=== PATIENT | male | born 1990 | race Caucasian/White ===

== ENCOUNTER 2018-12-24 15:07 | Outpatient (REF) | payer SELFPAY ==
[2018-12-26 11:26] LABS: Syphilis Serology (RPR) Negative (Negative)
== END 2018-12-24 15:27 ==
LOC: NCHCN 15:07
PROVIDERS: PCP Nurse Practitioner Family; Visit Provider Specialist/Technologist Athletic Trainer
DX: N48.9 Disorder of penis, unspecified (principal)
CPT/HCPCS: 86592

== ENCOUNTER 2019-01-09 16:26 | Emergency (ER) | payer SELFPAY ==
[2019-01-09 16:41] VITALS: BP 140/80; PULSE 80; RESP 16; TEMP 36.8; O2SAT 100
[2019-01-09] MEDS: Normal Saline 1,000 ML 1000 ML IV (17:05)
[2019-01-09] MEDS: Normal Saline Flush 10 ML SYR IVP (17:14)
[2019-01-09 17:17] LABS: Abs Immature Grans 0.01 k/cumm (0.0-0.09); Absolute Basophil Count 0.04 k/cumm (0.0-0.2); Absolute Eosinophil Count 0.11 k/cumm (0.0-0.7); Absolute Lymphocyte Count 2.17 k/cumm (1.2-3.4); Absolute Monocyte Count 0.54 k/cumm (0.11-0.7); Absolute Neutrophil Count 4.13 k/cumm (1.2-6.7); Basophils % 0.6; Eosinophils % 1.6; HCT 47.6 % (40.0-50.0); HGB 16.4 g/dL (13.5-17.5); Immature Grans % 0.1; Mean Corp. HGB Concentration 34.5 g/dL (32.0-36.0); Mean Corpuscular Hemoglobin 30.6 pg (27.0-33.0); Mean Corpuscular Volume 88.8 fL (80-95); Mean Platelet Volume 9.6 fL (8.0-11.0); Monocytes % 7.7; Platelet Count 285 x1000/uL (130-400); RBC 5.36 m/cumm (4.50-6.00); RBC Distribution Width 11.7 % (11.8-14.1)
[2019-01-09 17:21] VITALS: RESP 16
[2019-01-09 17:30] LABS: ALT 20 U/L (16-63); AST 18 U/L (15-37); Albumin 4.6 g/dL (3.4-5.0); Alkaline Phosphatase 47 U/L (46-116); Anion Gap 7.6 mmol/L (3-11); BUN 15 mg/dL (7-18); Bilirubin, Total 0.5 mg/dL (0.2-1.0); CO2 30.4 mmol/L (21.0-32.0); CREATININE 0.99 mg/dL (0.70-1.30); Calcium 9.3 mg/dL (8.5-10.1); Chloride 103 mmol/L (98-107); Glucose 97 mg/dL (70-100); Potassium 3.9 mmol/L (3.5-5.1); Sodium 141 mmol/L (136-145); Total Protein 8.1 g/dL (6.4-8.2)
--- NOTE | 2019-01-09 19:00 | DI.CT_ITS ---
EXAM: CT HEAD SINUS WO CLINICAL HISTORY: Headache, sinus pressure, near syncope. TECHNIQUE: COMPARISON: No exams were available for comparison FINDINGS: CT examination of the sinuses was performed without contrast administration. Minimal mucoperiosteal thickening of maxillary and left sphenoid sinus. Unremarkable appearance of complexes. Left sonya bullosa of the middle turbinate. Noncontrast cranial CT was performed. No evidence of acute intracranial hemorrhage mass effect or mi dline shift. The orbital and temporal bone structures appear intact. Minimal sinus pathology noted as seen on sinus CT acquisition. IMPRESSION: Minimal maxillary and left sphenoid sinusitis. No acute intracranial process.
[2019-01-09 19:10] VITALS: BP 131/82; PULSE 71; RESP 16; TEMP 36.7
--- NOTE | 2019-01-09 19:11 | NUR.NOTE ---
Assumed care of pt. sititng in chair in nad. denies pain, states feeling more relaxed. awaiting CT results.
--- NOTE | 2019-01-09 19:13 | DI.VRAD_ITS ---
PROCEDURE INFORMATION: Exam: CT Head Without Contrast Exam date and time: 01/09/2019 18:56 Clinical history: 28 years old, male; Other: Headache, sinus congestion. TECHNIQUE: Imaging protocol: Computed tomography of the head without contrast. Radiation optimization: All CT scans at this facility use at least one of these dose optimization techniques: automated exposure control; mA and/or kV adjustment per patient size (includes targeted exams where dose is matched to clinical indication); or iterative reconstruction. COMPARISON: No relevant prior studies available. FINDINGS: Brain: No hemorrhage. No significant white matter disease. No edema. Ventricles: No ventriculomegaly. Bones/joints: No acute fracture. Sinuses: No acute sinusitis. Mastoid air cells: No mastoid effusion. Soft tissues: No suspicious lesions. IMPRESSION: No acute intracranial findings. PROCEDURE INFORMATION: Exam: CT Maxillofacial Without Contrast Exam date and time: 01/09/2019 18:56 Clinical history: 28 years old, male; Other: Headache, sinus congestion. TECHNIQUE: Imaging protocol: Computed tomography images of the face without contrast. Radiation optimization: All CT scans at this facility use at least one of these dose optimization techniques: automated exposure control; mA and/or kV adjustment per patient size (includes targeted exams where dose is matched to clinical indication); or iterative reconstruction. COMPARISON: No relevant prior studies available. FINDINGS: Orbits: Orbits are normal. Globes are unremarkable. Sinuses: Trace mucosal thickening in the maxillary sinuses with no air-fluid levels. Trace mucosal thickening in the left sphenoid sinus with no air-fluid levels. Minimal narrowing of the right ostiomeatal unit. The left ostiomeatal unit is patent. Bones/joints: Mild rightward deviation of the nasal septum. Soft tissues: Unremarkable. IMPRESSION: Minimal maxillary and sphenoid sinus disease. Dictated and Authenticated by: Latha Syed MD. Ordering:VERONICA Soto MD
--- NOTE | 2019-01-09 19:59 | W.ED.GENAD ---
Discharge Plan Disposition Patient Disposition: HOME Condition: Good Discharge Details Chief Complaint: Dizzy/Sync Clinical Impression: Sinusitis Primary Care Provider: Karine Lanza ED Provider: Charles Gannon Home Meds and New Rx's Prescriptions: New Flonase Sensimist 27.5 mcg/actuation spray,suspension 2 spray LILA DAILY Qty: 5.9 RF: 1 No Action No Known Home Meds RF: 0 Discharge Instructions Instructions: Sinusitis (ED) Additional Instructions: Please take medication as prescribed and return to the emergency department immediately for any new or significant worsening of symptoms. After you use the nasal steroid for the next 2 weeks if your symptoms are not improving feel free to follow-up with your primary care provider for further reassessment and testing as needed. You may take [id number] ibuprofen as needed for any pain or discomfort take 600 mg every 6 hours. Referrals: Karine Lanza [Primary Care Provider] - 2 weeks (As needed for reassessment or if not improving) Discharge Data Discharge Date/Time-TO BE ENTERED AT DEPARTURE: 01/09/19 20:05 Medical Decision Making Patient presenting to the emergency department for chief complaint of sinus pressure and occasional disequilibrium. Patient states this is been going on for 2 months. He does state at night in the mornings he does notice some nasal congestion but his concern was some increasing in sinus tenderness and increase and disequilibrium symptoms. Physical exam is unremarkable. Given patient's duration of symptoms and concern of sinus pressure and district equilibrium did decide to perform CT imaging of head and sinuses for concern of sinus disease. Patient refused any medications at this time. Review of labs show unremarkable CBC, CMP is also normal. Review of head and sinus CT shows findings consistent with sinus disease but no other acute findings noted. Discussed with patient management with Flonase to attempt to reduce findings of sinus disease. Patient was agreeable to this. Given the patient is otherwise well in appearance and unremarkable exam I feel the patient is able to be safely discharged and to follow-up with primary care provider if not improving in the next 2 weeks or to return for new or worsening symptoms. After discussion of diagnosis and plan of care patient has no further needs, questions, or concerns and states clear understanding to return to the emergency department for any worsening symptoms. HPI General Mode of arrival: ambulatory. Date/Time Provider Initiated Documentation: 01/09/19 16:46. Limitations to Documentation: no limitations. Information obtained by: patient, family and RN notes reviewed. History of Present Illness 28 year old M presents to the emergency department with the chief complaint of sinus pressure and occasional disequilibrium, described as mild, with intensity rated at 4. Quality is described as dull (pressure), and is localized to the face. Patient started experiencing this month(s) (2) and it has been constant. No relieving factors improve symptom(s), No exacerbating factors reported . Related Data Home Medications Medication Instructions Recorded Confirmed Unknown [No Known Home Meds] 02/21/16 02/21/16 fluticasone furoate [Flonase 2 spray LILA DAILY #5.9 ml 01/09/19 Sensimist] Previous Rx's Medication Instructions Recorded fluticasone furoate [Flonase 2 spray LILA DAILY #5.9 ml 01/09/19 Sensimist] Allergies Allergy/AdvReac Type Severity Reaction Status Date / Time No Known Allergies Allergy Unverified 01/09/19 16:45 General Stated Complaint: Dizzy/Sync NIMESH: 3 Review of Systems Constitutional Constitutional: Denies chills, Denies fever(s) and Denies headache(s) Eyes Eyes: Denies loss of vision ENT Ears, Nose, Mouth, and Throat: Reports as per HPI, Reports vertigo (intermittent), Denies headache(s), Reports nasal congestion, Denies neck pain, Reports sinus pressure and Denies sore throat Respiratory Respiratory: Denies cough Musculoskeletal Musculoskeletal: Denies neck pain Neurologic Neurologic: Reports vertigo (intermittent), Denies headache(s), Denies focal weakness and Denies loss of vision [facility] Social History Smoking/Tobacco Use Status: Never Alcohol Intake: current Drug use: Never Substance use type: does not use Do you feel safe in your relationship?: Yes Exam Const General: cooperative, comfortable and no acute distress Orientation: alert and awake [facility] Head: normal to inspection, normocephalic and atraumatic Ears: hearing grossly normal bilaterally, external ears normal and TM's normal bilaterally General nose exam: external nose normal and nares normal Face and sinus: no erythema and sinus tenderness (more on right than left) frontal and maxillary Mouth: oral mucosae normal, no drooling, no muffled voice and no trismus Throat: posterior oropharynx normal, tonsils normal and uvula midline Neck Neck: normal visual inspection, full ROM, no lymphadenopathy, no meningeal signs, trachea midline and supple Resp Effort & Inspection: normal respiratory effort and able to speak in complete sentences Neuro General: alert, awake, oriented x3, gait normal and moves all extremities Cognition: normal cognition Speech: speech normal Course Vital Signs Vital signs: Vital Signs Temperature 36.8 C 01/09/19 16:41 Pulse 80 01/09/19 16:41 Respiratory Rate 16 01/09/19 16:41 Blood Pressure 140/80 01/09/19 16:41 Pulse Oximetry 100 01/09/19 16:41 Temperature 36.7 C 01/09/19 19:10 Temperature Source Skin 01/09/19 19:10 Pulse 71 01/09/19 19:10 Respiratory Rate 16 01/09/19 19:10 Respiratory Effort Non-Labored 01/09/19 17:21 Respiratory Depth Normal 01/09/19 17:21 Respiratory Pattern Normal 01/09/19 17:21 Blood Pressure 131/82 01/09/19 19:10 Blood Pressure Position Sitting 01/09/19 16:41 Pulse Oximetry 100 01/09/19 16:41 Oxygen Delivery Method Room Air 01/09/19 19:10 Oxygen Flow Rate 0 01/09/19 19:10 Pain Level 0 01/09/19 19:33 Comment 01/09/19 16:41 Lab/Test Results Lab/Test Results: Laboratory Tests Range/Units 01/09/19 01/09/19 17:05 17:05 WBC (4.4-10.8) k/cumm 7.00 RBC (4.50-6.00) m/cumm 5.36 Hgb (13.5-17.5) g/dL 16.4 Hct (40.0-50.0) % 47.6 MCV (80-95) fL 88.8 MCH (27.0-33.0) pg 30.6 MCHC (32.0-36.0) g/dL 34.5 RDW (11.8-14.1) % 11.7 L Plt Count (130-400) x1000/uL 285 MPV (8.0-11.0) fL 9.6 Immature Gran % 0.1 Neutrophils % 59.0 Lymphocytes % 31.0 Monocytes % 7.7 Eosinophils % 1.6 Basophils % 0.6 Absolute Neutrophils (1.2-6.7) k/cumm 4.13 Absolute Lymphocytes (1.2-3.4) k/cumm 2.17 Absolute Monocytes (0.11-0.7) k/cumm 0.54 Absolute Eosinophils (0.0-0.7) k/cumm 0.11 Absolute Basophils (0.0-0.2) k/cumm 0.04 Sodium (136-145) mmol/L 141 Potassium (3.5-5.1) mmol/L 3.9 Chloride (98-107) mmol/L 103 Carbon Dioxide (21.0-32.0) mmol/L 30.4 Anion Gap (3-11) mmol/L 7.6 BUN (7-18) mg/dL 15 Creatinine (0.70-1.30) mg/dL 0.99 Estimated GFR/1.73 m2 (mL/min/1.73m2) >= 60.00 Glucose (70-100) mg/dL 97 Calcium (8.5-10.1) mg/dL 9.3 Total Bilirubin (0.2-1.0) mg/dL 0.5 AST (15-37) U/L 18 ALT (16-63) U/L 20 Alkaline Phosphatase (46-116) U/L 47 Total Protein (6.4-8.2) g/dL 8.1 Albumin (3.4-5.0) g/dL 4.6
== END 2019-01-09 20:05 | disposition home or self-care (01) ==
PROVIDERS: Emergency Provider Nurse Practitioner Family; PCP Nurse Practitioner Family
DX: J01.90 Acute sinusitis, unspecified (principal)
CPT/HCPCS: 36415; 80053; 96360; 96361; 99284; 70450; 70486; 85025

== ENCOUNTER 2019-12-24 08:57 | Outpatient (CLI) | payer BC, SELFPAY ==
[2019-12-26 19:21] LABS: Patient Race White; SARS-CoV-2 RNA Undetected (Undetected); SARS-CoV-2 Specimen Source Nasopharynx
== END 2019-12-24 09:17 ==
LOC: NCHCO 10:01 → LBO 11:46
PROVIDERS: PCP Family Medicine; Visit Provider Nurse Practitioner Family
DX: Z20.828 Contact with and (suspected) exposure to other viral communicable diseases (principal)
CPT/HCPCS: U0003

== ENCOUNTER 2020-02-11 09:11 | Outpatient (CLI) | payer BC, SELFPAY ==
[2020-02-11 12:41] LABS: Calculated LDL 97 mg/dL (<100); Cholesterol 172 mg/dL (<200); HDL Cholesterol 47 mg/dL (40-60); Triglyceride 143 mg/dL (<150)
[2020-02-14 16:04] LABS: Testosterone, Free 11.8 ng/dL (5.05-19.8); Testosterone, Total 470 ng/dL (240-950)
== END 2020-02-11 09:31 ==
PROVIDERS: PCP Family Medicine; Referring Provider Family Medicine; Visit Provider Family Medicine
DX: Z00.00 Encounter for general adult medical examination without abnormal findings (principal); E78.5 Hyperlipidemia, unspecified
CPT/HCPCS: 36415; 80061; 84402; 84403

== ENCOUNTER 2020-03-03 00:28 | Outpatient (CLI) | payer MEDICAID, SELFPAY ==
--- NOTE | 2020-03-03 06:45 | DI.RAD_ITS ---
EXAM: XR CERVICAL SPINE COMP 4-5V CLINICAL HISTORY: neck and back pain,M54.2 TECHNIQUE: COMPARISON: No exams were available for comparison FINDINGS: Five views were obtained. Intervertebral disc spaces appear well maintained. There is a minimal kyp hotic deformity of the upper cervical spine. Prevertebral soft tissues appear intact. No bony abnormality seen. Neural foramina are well maintained as visualized on oblique views. IMPRESSION: Negative examination of the cervical spine. RADIATION DOSE DELIVERED: Total DLP Total DLP
--- NOTE | 2020-03-03 08:37 | DI.RAD_ITS ---
EXAM: XR THORACIC SPINE COMPLETE CLINICAL HISTORY: neck and back pain,M54.9 TECHNIQUE: COMPARISON: CR XR CERVICAL SPINE COMP 4-5V from 03/03/2020 FINDINGS: Three views were obtained. There is a minimal biconvex thoracolumbar scoliosis. Intervertebral disc spaces appear fairly well maintained. No focal bony abnormality seen thoracic spine. IMPRESSION: Essentially negative examination of the thoracic spine. RADIATION DOSE DELIVERED: Total DLP Total DLP
== END 2020-03-03 00:48 ==
PROVIDERS: PCP Family Medicine; Visit Provider Family Medicine
DX: M54.2 Cervicalgia (principal); M54.9 Dorsalgia, unspecified
CPT/HCPCS: 72050; 72072

== ENCOUNTER 2020-05-05 03:10 | Outpatient (CLI) | payer MEDICAID, SELFPAY ==
[2020-05-05 13:16] LABS: C-Reactive Protein < 0.05 mg/dL (0.0-0.3)
[2020-05-05 13:35] LABS: ESR 4 mm/hr (0-15)
[2020-05-05 16:57] LABS: Rheumatoid Factor <8.6 IU/mL (<12.0)
[2020-05-06 12:22] LABS: ANA Interpretation Positive (Negative); ANA Titer Pattern 1:80 Speckled
== END 2020-05-05 03:11 | disposition home or self-care (01) ==
LOC: LBO 03:10
PROVIDERS: PCP Family Medicine; Visit Provider Family Medicine
DX: M25.59 Pain in other specified joint (principal)
CPT/HCPCS: 36415; 85652; 86038; 86140; 86431

== ENCOUNTER 2020-05-29 13:41 | Outpatient (REF) | payer MEDICAID, SELFPAY ==
[2020-06-01 21:03] LABS: Chlamydia Result Negative (Negative); GC Result Negative (Negative)
== END 2020-05-29 13:42 | disposition home or self-care (01) ==
LOC: NCHCN 13:41
PROVIDERS: PCP Family Medicine; Visit Provider Family Medicine
DX: Z20.2 Contact with and (suspected) exposure to infections with a predominantly sexual mode of transmission (principal)
CPT/HCPCS: 87491; 87591

== ENCOUNTER 2021-08-13 11:09 | Outpatient (CLI) | payer MEDICAID, SELFPAY ==
--- NOTE | 2021-08-13 09:30 | DI.RAD_ITS ---
Exam(s) XR ELBOW RT COMPLETE EXAM: XR ELBOW RT COMPLETE CLINICAL HISTORY: pain in elbow/limited motion. TECHNIQUE: 2D digital imaging was performed. COMPARISON: No exams were available for comparison FINDINGS: 3 views There is no evidence of fracture or joint effusion. There is no swelling of the olecranon bursa. Ra dial head and neck appear unremarkable. Bone density normal. No osseous lesions. IMPRESSION: No significant findings DATA REPOSITORY: RADIATION DOSE DELIVERED:
== END 2021-08-13 11:10 | disposition home or self-care (01) ==
LOC: DIORS 11:09
PROVIDERS: PCP Family Medicine; Referring Provider Family Medicine; Visit Provider Physician Assistant Surgical
DX: M25.521 Pain in right elbow (principal); M25.621 Stiffness of right elbow, not elsewhere classified
CPT/HCPCS: 73080

== ENCOUNTER → 2021-08-26 02:32 | Outpatient (CLI) | payer MEDICAID, SELFPAY ==
--- NOTE | 2021-08-26 08:34 | DI.MRI_ITS ---
Exam(s) MR UPPER JOINT RT WO EXAM: MR UPPER JOINT RT WO CLINICAL HISTORY: PAIN, TRAUMATIC INJURY, MEDIAL EPICONDYLITIS, S59.909A, M77.01. TECHNIQUE: Multiplanar multisequence MRI was performed. COMPARISON: Priors available for comparison. FINDINGS: The examination is limited due to patient motion artifact. BONES: No evidence of a fracture. Marrow edema is seen in the proximal ulna and lateral femoral cond yle. There is also mild edema seen in the radial head. JOINTS: The articular cartilage is unremarkable. There is a moderate joint effusion. TENDONS: Common flexors: Mild hyperintense signal is seen in the common flexor tendons. Common extensors: Unremarkable. Biceps: Unremarkable. Triceps: Unremarkable. MUSCLES: Unremarkable. MEDIAN NERVE: Unremarkable on this noncontrast examination. ULNAR NERVE: Unremarkable on this noncontrast examination. SOFT TISSUES: Unremarkable. LIGAMENTS: Ulnar collateral: There is hyperintense signal seen in the proximal ulnar collateral ligament complex . Consistent with a partial tear. Radial collateral: Unremarkable. OTHER: IMPRESSION: 1. Study limited by patient motion artifact. 2. Hyperintense signal seen in the proximal aspect of the ulnar collateral ligament complex suspiciou s for partial tear. 3. Mild hyperintense signal seen in the common flexor tendon near its insertion site. The findings m ay represent tendinosis. Partial tear cannot be excluded. 4. Moderate joint effusion. DATA REPOSITORY:
== END ==
PROVIDERS: PCP Family Medicine; Visit Provider Student in an Organized Health Care Education/Training Program
DX: M25.521 Pain in right elbow; M77.01 Medial epicondylitis, right elbow; S59.801A Other specified injuries of right elbow, initial encounter; M25.421 Effusion, right elbow; S53.31XA Traumatic rupture of right ulnar collateral ligament, initial encounter
CPT/HCPCS: 73221

== ENCOUNTER 2022-08-16 09:46 | Outpatient (CLI) | payer MEDICAID, SELFPAY ==
[2022-08-16 13:21] LABS: Calculated LDL 102 mg/dL (<100); Cholesterol 171 mg/dL (<200); Glucose 91 mg/dL (74-106); HDL Cholesterol 53 mg/dL (40-60); Triglyceride 83 mg/dL (<150)
== END 2022-08-16 09:47 | disposition home or self-care (01) ==
LOC: LOS 09:46
PROVIDERS: PCP Family Medicine; Visit Provider Family Medicine
DX: E78.5 Hyperlipidemia, unspecified (principal); R73.9 Hyperglycemia, unspecified
CPT/HCPCS: 36415; 80061; 82947